=== PATIENT | male | born 1985 | race Caucasian/White ===

== ENCOUNTER 2023-01-01 21:05 | Emergency (ER) | payer BC ==
[2023-01-01 21:24] VITALS: BP 119/76; PULSE 69; RESP 19; TEMP 98.2; BMI 27.3
[2023-01-01] MEDS ORDERED: diazePAM 5 MG TABLET PO ONE (21:59)
[2023-01-01] MEDS ORDERED: KETOROLAC TROMETHAMINE 30 MG/1 ML VIAL IM ONE (21:59)
[2023-01-01] MEDS ORDERED: KETOROLAC TROMETHAMINE 30 MG/1 ML VIAL ONE (22:01)
[2023-01-01] MEDS ORDERED: diazePAM 5 MG TABLET ONE (22:01)
== END 2023-01-02 02:29 | disposition home or self-care (01) ==
LOC: JER 21:05
PROC: 3E0233Z Introduction of Anti-inflammatory into Muscle, Percutaneous Approach (ICD-10-PCS; principal; 2023-01-01)
DX: S09.90XA Unspecified injury of head, initial encounter (principal); F07.81 Postconcussional syndrome; R42 Dizziness and giddiness; V89.2XXA Person injured in unspecified motor-vehicle accident, traffic, initial encounter
CPT/HCPCS: 70450-TC; 72125-TC; 99284-25